=== PATIENT | female | born 1995 | race Two or more races ===

== ENCOUNTER 2017-08-15 05:44 | Day surgery (SDC) | payer OTHER, SELFPAY ==
[2017-08-15] VITALS (11 sets, daily range): BP systolic 99–116; BP diastolic 50–65
[~2017-08-15] VITALS: Ht 162.6 cm; Wt 66.2 kg
[2017-08-15] MEDS ORDERED: Zemuron 50mg/5ml Inj IV ONE (05:45)
[2017-08-15] MEDS ORDERED: Morphine Sulfate 10mg/ml Inj ONE (05:45)
[2017-08-15] MEDS ORDERED: Succinylcholine 20mg/ml 10ml vial ONE (05:45)
[2017-08-15] MEDS ORDERED: Propofol 200mg/20ml IV ONE (05:45)
[2017-08-15] MEDS ORDERED: Neostigmine 1mg/ml 10ml Inj ONE (05:45)
[2017-08-15] MEDS ORDERED: Glycopyrrolate 0.2mg/ml 1ml Vial ONE (05:45)
[2017-08-15] MEDS ORDERED: fentaNYL 100 mcg/2 mL IV ONE (05:45)
[2017-08-15] MEDS ORDERED: DEPO-TESTOSTER100 MG IM (06:22)
[2017-08-15] MEDS ORDERED: ceFAZolin sod 1 GM in NS 55 ML IVPB ONE (07:00)
[2017-08-15] MEDS ORDERED: Bacitracin Oint 15gm Tube TOPIC ONE (07:07)
[2017-08-15] MEDS ORDERED: Bupivacaine 0.25% Inj 30ml INJ ONE (07:07)
[2017-08-15] MEDS ORDERED: Muri-Lube ONE (07:07)
[2017-08-15] MEDS ORDERED: Bacitracin 50000 Units Vial ONE (07:08)
[2017-08-15] MEDS ORDERED: Lidocaine 1% 10mg/ml/Epi 0.005mg/ml 30ml vial INJ ONE (07:08)
[2017-08-15] MEDS ORDERED: TransDerm Scop 1mg/72HR Patch TDERMAL ONE ×2 (07:11→08:30)
--- NOTE | 2017-08-15 07:21 | Pre-Procedure Note/Attestation ---
Pre-Procedure Note/Attestation Complete Prior to Procedure Planned Procedure: bilateral Procedure Narrative: mastectomy Indications for Procedure Pre-Operative Diagnosis: gender dysphoria Attestation I attest that I discussed the nature of the procedure; its benefits; risks and complications; and alternatives (and the risks and benefits of such alternatives ), prior to the procedure, with the patient (or the patient's legal special service representative). I attest that, if there was a reasonable possibility of needing a blood transfusion, the patient (or the patient's legal special service representative) was given the [facility] standardized written summary, pursuant to the [place] Blood Safety Act ([place] Health and Safety Code # 1645, as amended). I attest that I re-evaluated the patient just prior to the surgery and that there has been no change in the patient's H&P, except as documented below: ANNA IRVIN M.D. Aug 15, 2017 07:21
--- NOTE | 2017-08-15 08:19 | Anethesia Preoperative Eval ---
Anesthesia Pre-op PMH/ROS General Date of Evaluation: Aug 15, 2017 Time of Evaluation: 07:22 Anesthesiologist: Cam ASA Score: ASA 2 Mallampati Score Class I : Soft palate, uvula, fauces, pillars visible Class II: Soft palate, uvula, fauces visible Class III: Soft palate, base of uvula visible Class IV: Only hard plate visible Mallampati Classification: Class II Surgeon: Siddhartha Diagnosis: Gender dysphoria Surgical Procedure: Bilateral mastectomy Anesthesia History: none Family History: no anesthesia problems Allergies: Coded Allergies: No Known Allergies (Unverified , 08/15/17) Medications: see eMAR Past Medical History Cardiovascular: Denies: HTN, CAD, PA, valve dz, arrhythmia, other Pulmonary: Denies: asthma, COPD, MANUEL, other Gastrointestinal/Genitourinary: Reports: GERD - mild, Denies: CRI, ESRD, other Neurologic/Psychiatric: Reports: depression/anxiety, Denies: dementia, CVA, TIA, other Endocrine: Denies: DM, hypothyroidism, steroids, other HEENT: Denies: cataract (L), cataract (R), glaucoma, [place] (L), [place] (R), other Hematology/Immune: Denies: anemia, DVT, bleeding disorder, other Musculoskeletal/Integumentary: Denies: OA, RA, DJD, DDD, edema, other PMH Narrative: as above PSxH Narrative: None Anesthesia Pre-op Phys. Exam Physician Exam Last Vital Signs Date Time Temp Pulse Resp B/P (MAP) Pulse Ox O2 Delivery O2 Flow Rate FiO2 08/15/17 06:27 98.4 66 18 104/52 97 Room Air Constitutional: NAD Neurologic: CN 2-12 intact Cardiovascular: RRR, no M/R/G Respiratory: CTA Gastrointestinal: S/NT/ND Airway Exam Mallampati Score: Class II MO: full Neck: flexible ROM: full Teeth: intact Dentures: no upper, no lower Anesthesia Pre-op A/P Labs see chart Urine Test Test 08/15/17 06:20 Urine HCG, Qualitative Negative Risk Assessment & Plan Assessment: ASA 2 Plan: GA with ETT PONV prevention Status Change Before Surgery: No Pre-Antibiotics Drug: Ancef 1 gr. Given Within 1 Hr of Incision: Yes Time Given: 07:56 MICHAEL BROWN M.D. Aug 15, 2017 08:19
[2017-08-15] MEDS ORDERED: LR 1000ml 1,000 ML IVLG SCH (08:20)
[2017-08-15] MEDS ORDERED: Meperidine 50mg/ml Inj(FOR RIGORS ONLY) IV PRN ×2 (08:30)
[2017-08-15] MEDS ORDERED: Hydromorphone 0.5mg/0.5ml inj IVP PRN (08:30)
[2017-08-15] MEDS ORDERED: DiphenhydrAMINE 50mg/ml Inj IVP PRN (08:30)
[2017-08-15] MEDS ORDERED: Ketorolac 30mg Inj IV PRN (08:30)
[2017-08-15] MEDS ORDERED: Midazolam 2mg/2ml Inj IVP PRN (08:30)
--- NOTE | 2017-08-15 11:33 | Operative Note - PDOC ---
Operative Note Operative Note Date of Operation/Procedure: Aug 15, 2017 Pre-op Diagnosis: gender dysphoria Procedure: bilateral mastectomy, bilateral nipple areola reconstruction with free nipple areola full thickness composite graft Post-op Diagnosis: same as pre-op Surgeon: Siddhartha Anesthesia: general Specimen: yes - 1) right breast, 2) left breast Complications: none Condition: stable Estimated Blood Loss: volume - 50 cc Drains: NELLY - x2 Implant(s) used?: No ANNA IRVIN M.D. Aug 15, 2017 11:33
--- NOTE | 2017-08-15 13:13 | Immediate Post-Op Evaluation ---
Immediate Post-Op Evalulation Immediate Post-Op Evalulation Procedure: Bilateral mastectomy with nippler reconstruction Date of Evaluation: Aug 15, 2017 Time of Evaluation: 11:52 IV Fluids: 1700 Blood Products: none Estimated Blood Loss: 150 Urinary Output: 100 Blood Pressure Systolic: 116 Blood Pressure Diastolic: 58 Pulse Rate: 86 Respiratory Rate: 22 O2 Sat by Pulse Oximetry: 99 Temperature (Fahrenheit): 98.4 Pain Score (1-10): 2 Nausea: No Vomiting: No Complications none Patient Status: awake, patent, extubated, none Hydration Status: adequate MICHAEL BROWN M.D. Aug 15, 2017 13:13
--- NOTE | 2017-08-15 13:24 | 48 Hour Post Anesthesia Eval ---
Post Anesthesia Evaluation Procedure: Bilateral mastectomy with nipple reconstruction Date of Evaluation: Aug 15, 2017 Time of Evaluation: 13:23 Blood Pressure Systolic: 109 0: 61 Pulse Rate: 86 Respiratory Rate: 22 Temperature (Fahrenheit): 97.8 O2 Sat by Pulse Oximetry: 98 Airway: patent Nausea: No Vomiting: No Pain Intensity: 2 Hydration Status: adequate Cardiopulmonary Status: stable Mental Status/LOC: patient returned to baseline Follow-up Care/Observations: n/a Post-Anesthesia Complications: none Follow-up care needed: ready to discharge MICHAEL BROWN M.D. Aug 15, 2017 13:24
[2017-08-15] MEDS ORDERED: Tylenol #3 tab (300mg/30mg) ORAL PRN (15:01)
[2017-08-15] MEDS ORDERED: D5 1/2NS 1,000 ML IV SCH (15:01)
[2017-08-15] MEDS ORDERED: HYDROmorphone 1mg/ml Carpuject SUBQ PRN (15:01)
[2017-08-15] MEDS ORDERED: Norco 5mg/325mg tab ORAL PRN (15:01)
--- NOTE | 2017-08-15 16:45 | Operative Note - Dictated ---
PREOPERATIVE DIAGNOSIS: Gender dysphoria. POSTOPERATIVE DIAGNOSIS: Gender dysphoria. PROCEDURE: 1. Bilateral subcutaneous mastectomy. 2. Bilateral nipple areolar reconstruction with full-thickness composite grafts (each graft 2.5 x 2.5 cm). 3. Closure of the right breast wound with adjacent tissue rearrangement (8 x 2 cm). 4. Closure of the left breast wound with adjacent tissue rearrangement (6 x 2.5 cm). SURGEON: Deion Carl M.D. ANESTHESIA: General. ESTIMATED BLOOD LOSS: 50 mL. SPECIMENS: 1. Right breast. 2. Left breast. DRAINS: 15-German Jamie x2. COMPLICATIONS: None. CONDITION TO RECOVERY ROOM: Stable. INDICATION FOR PROCEDURE: This is a very pleasant 21-year-old transgender male who has been undergoing the process of transition. He has the appropriate letter of recommendation from his mental health therapist and he meets all WPATH criteria for top surgery. I have discussed the risks, benefits, and alternatives to the procedure with him including, but not limited to bleeding, infection, scarring, nerve injury, asymmetry, contour deformity, hematoma, seroma, loss of nipple sensation, loss of nipple graft and need for additional surgery including revisions. I discussed the orientation of the incisions and the unpredictable nature of scarring. No guarantees were made regarding the outcome. All of his questions have been answered to the best of my ability. He verbalized understanding with everything that we discussed and wishes to proceed. DESCRIPTION OF PROCEDURE: The patient was identified in the preoperative holding area and marked in the standing position. He was then brought to the operating room, where he was placed in the supine position on the operating room table with his arms extended on arm boards. All bony prominences were adequately padded. Sequential compression devices were placed and intravenous antibiotics were administered. After induction of anesthesia, the patient's chest was prepped and draped in sterile fashion. Starting on the left chest, I placed the nipple-areolar complex on stretch and a [place] measuring 2.5 x 2.5 cm was drawn centered around the nipple. Next, a #15 blade scalpel was used to harvest a full-thickness composite graft consisting of nipple and areola. The graft was subsequently defatted and wrapped in a wet gauze and placed on the back table. Next, I made the inframammary fold incision using a #10 blade scalpel. Dissection proceeded down to the level of the pectoralis major and rectus abdominis fascia using electrocautery. Next, the superior skin incision was made using a #10 blade scalpel. Dissection proceeded down to the level of Giselle's fascia. Skin hooks were then used to retract the skin and a plane of dissection was created in a superior direction between the subcutaneous tissues and the breast parenchyma until approximately the level of the clavicle was reached. Once this was done, the breast tissue was then elevated off of the pectoralis major fascia proceeding from a medial to lateral direction. The breast was then passed off the table as a specimen. Hemostasis was achieved and the wound was irrigated with saline. A 15-[place] Jamie drain was then placed within the wound and brought out through a separate stab incision and secured using 2-0 silk suture. Next, skin nicolette were used to temporarily reapproximate the skin. In the middle of the incision, there was a gap of approximately 6 x 2.5 cm, which could not be reapproximated despite wide undermining in all directions. I therefore extended the incision laterally and in an oblique orientation towards the axilla. Skin hooks were used to retract the skin and dissection was performed in an inferior and lateral direction above the level of the rectus abdominis fascia taking care to identify and preserve all intercostal perforators. Once this was done, I was then able to transpose the tissues in a superior and medial direction such that the skin could now be reapproximated without any undue tension. I shifted my attention to the contralateral side where the identical procedure was performed. On the right chest, there was a gap of approximately 8 x 2 cm in the midportion of the incision, which also could not be reapproximated despite wide undermining. In similar fashion, I extended the incision laterally and in an oblique orientation towards the axilla. Undermining was performed inferiorly and laterally above the level of the rectus abdominis fascia taking care to identify and preserve all intercostal perforators so as to preserve vascularity to the tissues. Once this maneuver was done, I was then able to transpose the tissue superiorly and medially such that the skin could now be reapproximated without any undue tension. The patient was then sat up on the operating room table, and it appeared that he had reasonable symmetry between the 2 sides of the chest. A marking pen was used to outline the proposed location of the new nipple-areola complex on each side. This was confirmed with measurements. He was then placed back in the supine position. On each side, interrupted #0 Vicryl sutures were used to reapproximate Giselle's fascia. The skin nicolette were removed. The dermal layers were closed with 3-0 PDS followed by a running 3-0 Monocryl suture for the skin. Next, each of the markings corresponding to the new nipple-areolar complex location was incised using a #15 blade scalpel. The intervening skin was de-epithelialized. Each of the full-thickness nipple-areolar composite grafts were then brought to the proper side and inset using a running 5-0 fast absorbing suture. Next, several 2-0 silk suture ties were placed around the periphery of each graft. A skin graft bolster was then fashioned and secured into place using the 2-0 silk sutures. Next, a total of 30 mL of local anesthetic consisting of 1% lidocaine with epinephrine and 0.25% plain Marcaine were injected into the incisions. Sterile dressings were then applied. The patient tolerated the procedure well and was sent to the recovery room in stable condition. All instrument, sharp, and sponge counts were correct at the conclusion of the case. Deion Carl M.D. DR: LORENZO JOB#: [id number] CC: JOE
== END 2017-08-15 13:55 | disposition home or self-care (01) ==
LOC: SUR 05:44
DX: F64.9 Gender identity disorder, unspecified (principal); K21.9 Gastro-esophageal reflux disease without esophagitis; F41.9 Anxiety disorder, unspecified; F32.9 Major depressive disorder, single episode, unspecified
CPT/HCPCS: 14001; 19304; 19350; 81025; J0330; J0690; J2270; J2704; J2710; J3010; J3490; 94003; 94150